=== PATIENT | male | born 1985 | race Caucasian/White ===

== ENCOUNTER 2019-10-25 16:42 | Emergency (ER) | payer OTHER ==
[~2019-10-25] VITALS: Ht 185.4 cm; Wt 86.4 kg
[2019-10-25] MEDS ORDERED: TETanus/Pertussis (Acell)/Diphther VAC/PF (Tdap-Adult) 0.5ml syringe IMVAC ONE (17:55)
[2019-10-25 22:01] VITALS: BP 121/70
== END 2019-10-25 22:03 | disposition home or self-care (01) ==
LOC: ER 16:43
DX: S51.812A Laceration without foreign body of left forearm, initial encounter (principal); F12.90 Cannabis use, unspecified, uncomplicated; Z56.0 Unemployment, unspecified; W25.XXXA Contact with sharp glass, initial encounter; Y93.89 Activity, other specified; Y92.89 Other specified places as the place of occurrence of the external cause; Y99.9 Unspecified external cause status
CPT/HCPCS: 12002; 73080; 90471; 90715; 99283